=== PATIENT | female | born 1965 | race Caucasian/White ===

== ENCOUNTER 2017-02-20 22:19 | Emergency (ER) | payer BC, OTHER ==
[2017-02-20 23:31] LABS: HEMOGLOBIN 15.2 gm/dl (12.3-15.3); RED BLOOD COUNT 4.35 M/UL (4.00-5.10); WHITE BLOOD COUNT 9.9 K/UL (4.5-11.0)
[2017-02-20 23:55] LABS: BUN/CREATININE RATIO 17 (0-10)
== END 2017-02-21 03:15 | disposition home or self-care (01) ==
LOC: ER1 22:19
PROVIDERS: Family Medicine
DX: K57.92 Diverticulitis of intestine, part unspecified, without perforation or abscess without bleeding (principal); F17.210 Nicotine dependence, cigarettes, uncomplicated; Z88.5 Allergy status to narcotic agent
CPT/HCPCS: 36415; 80053; 80074; 80307; 81001; 84703; 85025; 87086; 87390; 96374; 96375; 99284; J1885; J2060; J2270; J2405; J7050; Q9962

== ENCOUNTER → 2020-11-10 | Outpatient (CLI) | payer BC, OTHER ==
[~2020-11-10] MED LIST: BUSPAR 10MG10 MG PO; MELATONIN3 MG PO; MINIPRESS2 MG PO; PHENERGAN 25 MG25 M1 PO; PROTONIX40 MG PO; REMERON15 MG PO; ZANTAC 150 MG150 MG PO; ZOFRAN4 MG PO; ZOLOFT100 MG PO
== END ==
LOC: KOH-I 13:30
DX: E04.1 Nontoxic single thyroid nodule (principal); Z90.89 Acquired absence of other organs
CPT/HCPCS: 76536